=== PATIENT | male | born 1945 ===

== ENCOUNTER 2019-10-13 23:06 | Emergency (ER) | payer OTHER ==
[~2019-10-13] VITALS: Ht 170.2 cm; Wt 64.1 kg
[2019-10-14] MEDS ORDERED: LIDOcaine 1% W/epiNEPHrine 1:200,000 10ml vial IJ ONE (00:35)
[2019-10-14] MEDS ORDERED: TETanus/Pertussis (Acell)/Diphther VAC/PF (Tdap-Adult) 0.5ml syringe IMVAC ONE (00:35)
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
--- NOTE | 2019-10-14 03:10 | NUR ---
DR Brown TO BEDSIDE TO ASSESS LACERATIONS
--- NOTE | 2019-10-14 03:47 | NUR ---
DR Brown SUTURING PT LEFT EAR
--- NOTE | 2019-10-14 04:12 | NUR ---
PHONED KAMI , PT SON , TO TRY AND ARRANGE TRANSPORTATION [phone] NO ANSWER NO MESSAGE MACHINE AVAILABLE NO OTHER CONTACTS
[2019-10-14] MEDS ORDERED: CEPH-572 PO (04:14)
--- NOTE | 2019-10-14 04:40 | NUR ---
TRY PT SON AGAIN . NO ANSWER . [facility]ING [facility] TO [facility]SWER PHONE FOR A [facility].
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
--- NOTE | 2019-10-14 06:12 | NUR ---
DISCHARGE CONSULT MADE FOR EVALUATION
--- NOTE | 2019-10-14 10:38 | NUR ---
SON KAMI CELL PHONE: [phone] SON BOYNTON PHONE: [phone]
--- NOTE | 2019-10-14 10:39 | NUR ---
SPOKE TO SON ON THE PHONE HE HAS TO DRIVE FROM [place] AND WILL BE HER IN ABOUT 8 HOURS
[2019-10-14 18:10] VITALS: BP 108/59
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
== END 2019-10-14 19:05 | disposition home or self-care (01) ==
LOC: EDBD 23:07 → ER 23:07
DX: S51.812A Laceration without foreign body of left forearm, initial encounter (principal); S61.412A Laceration without foreign body of left hand, initial encounter; S06.0X0A Concussion without loss of consciousness, initial encounter; S01.312A Laceration without foreign body of left ear, initial encounter; V87.7XXA Person injured in collision between other specified motor vehicles (traffic), initial encounter; Y93.89 Activity, other specified; Y92.89 Other specified places as the place of occurrence of the external cause; Y99.8 Other external cause status
CPT/HCPCS: 12011; 70450; 72125; 82948; 90471; 90715; 99285